=== PATIENT | male | born 1940 | race Caucasian/White ===

== ENCOUNTER 2017-10-03 14:31 | Emergency (ER) | payer MEDICARE, OTHER ==
[2017-10-03 14:45] VITALS: BP 126/90
[2017-10-03] MEDS ORDERED: BUPIVACAINE 0.5% PF 30 ML VIAL SUBQ STA (15:56)
[2017-10-03] MEDS ORDERED: BUFFERED LIDOCAINE 10 ML SYRINGE SUBQ STA (15:57)
[2017-10-03] MEDS ORDERED: BUPIVACAINE 0.5% PF 10 ML VIAL SUBQ STA (15:59)
[2017-10-03] MEDS ORDERED: TETANUS/DIPHTHERIA/PERTUSSIS 0.5 ML SYRINGE IM ONE (16:57)
--- NOTE | 2017-10-03 17:02 | ED Physician Documentation ---
PD HPI UPPER EXT INJURY - Stated complaint Stated Complaint: L SIDE FINGERS LAC - Chief complaint Chief Complaint: Ext Problem - History obtained from History obtained from: Patient, Family - History of Present Illness Location: Left, Finger (3rd 4th and 5th) Type of injury: Laceration Where injury occurred: Home Timing - onset: Today Timing - duration: Minutes Timing - details: Abrupt onset, Still present Improved by: Rest Worsened by: Moving, Palpating Associated symptoms: No: Weakness, Numbness, Tingling, Swelling, Discolored Contributing factors: No: Anticoagulated Similar symptoms before: Diagnosis (laceration) Recently seen: Not recently seen - Additonal information Additional information: 77-year-old male was using a table saw to cut a piece of trim and he reached over the top of the board and just nicked the top of his fingers left hand. He has lacerated deeply the left fifth digit over the ulnar surface along laceration of the left fourth digit and a more distal laceration of the third digit. He has retained all function. Review of Systems Constitutional: denies: Fever Eyes: denies: Decreased vision Ears: denies: Ear pain Nose: denies: Congestion Throat: denies: Sore throat Respiratory: denies: Cough GI: denies: Vomiting PD PAST MEDICAL HISTORY - Past Medical History Past Medical History: No - Past Surgical History Past Surgical History: Yes General: Appendectomy HEENT: Tonsil/Adenoidectomy - Present Medications Home Medications: Ambulatory Orders Medication Instructions Recorded Confirmed No Known Home Medications [No 10/03/17 10/03/17 Known Home Medications] - Allergies Allergies/Adverse Reactions: Allergies Allergy/AdvReac Type Severity Reaction Status Date / Time No Known Drug Allergies Allergy Verified 09/13/15 07:19 - Living Situation Living Situation: reports: With spouse/s.o. Living Arrangement: reports: At home - Social History Does the pt smoke?: No Smoking Status: Never smoker Does the pt drink ETOH?: Yes Does the pt have substance abuse?: No - POLST Patient has POLST: No PD ED PE NORMAL - Vitals Vital signs reviewed: Yes (diastolic hypertension ) - General General: Alert and oriented X 3, No acute distress, Well developed/nourished - HEENT HEENT: Atraumatic, PERRL, EOMI - Respiratory Respiratory: No respiratory distress - Derm Derm: Normal color, Warm and dry, No rash - Extremities Extremities: No deformity, No edema, Other (To the left hand there are multiple lacerations. To the distal third digit on the ulnar surface is a laceration along the cuticle that extends to the tip of the finger approximately 2 cm. On the fourth finger on the ulnar surface there is a long laceration that runs from the PIP to the distal phalange 4.5cm this laceration does not involve deeper structures there is macerated tissue and there is stretching of the tissue as well. On the fifth digit on the ulnar surface is a deep laceration that does involve some tissue loss over the ulnar surface of the PIP joint the laceration extends to just distal of the DIP 3.5cm. There is involvement of the facia but not tendon and the distal n/v is intact on all digits. He has no functional deficit on any digit. ) - Neuro Neuro: No motor deficit, No sensory deficit Eye Opening: Spontaneous Motor: Obeys Commands Verbal: Oriented GCS Score: 15 - Psych Psych: Normal mood, Normal affect Results - Vitals Vitals: Vital Signs - 24 hr 10/03/17 14:37 Temperature 36.0 C L Heart Rate 71 Respiratory 16 Rate Blood Pressure 126/90 H O2 Saturation 98 Oxygen O2 Source Room air Procedures - Laceration (location) 3rd, 4th and 5th digits Length in cm: 9.5 Wound type: Linear, Stellate, Irregular, Into subcut fat, Clean Neurovascular status: Sensory intact, Motor intact, Vascular intact Tendon involvement: Tendon intact Anesthesia: Lidocaine 1%, Marcaine 0.5%, With bicarb, OTH (lidocaine to the tip of #3, bupivicaine block to #4 and #5 with excellent anesthesia.) Wound Preparation: Hibiclens, Irrigated copiously NS, Wound explored, To the base Skin layer closure: Nylon, Interrupted, Size #-0 - enter number (5-0 and 4-0) Other: Patient tolerated well, No complications, Neurovascular intact, Dressing applied, Tetanus booster given Complexity: Simple PD MEDICAL DECISION MAKING - ED course Complexity details: reviewed old records, reviewed results, re-evaluated patient , considered differential, d/w patient, d/w family ED course: 77-year-old male with multiple table saw lacerations to his left fingers has not cut deeper structures and clean out and repair is done here in the emergency department. Patient tolerates this well and is given a tetanus booster. Departure - Departure Disposition: 01 Home, Self Care Clinical Impression: Finger laceration Qualifiers: Encounter type: initial encounter Finger: little finger Damage to nail status: without damage Foreign body presence: without foreign body Laterality: left Qualified Code(s): S61.217A - Laceration without foreign body of left little finger without damage to nail, initial encounter Condition: Stable Instructions: ED Laceration Hand Follow-Up: Soo Waite PA [Primary Care Provider] - Comments: sutures will need to be removed in 10-14 days.
== END 2017-10-03 17:35 | disposition home or self-care (01) ==
LOC: ED 14:31
DX: S61.217A Laceration without foreign body of left little finger without damage to nail, initial encounter (principal); S61.213A Laceration without foreign body of left middle finger without damage to nail, initial encounter; S61.215A Laceration without foreign body of left ring finger without damage to nail, initial encounter; W31.2XXA Contact with powered woodworking and forming machines, initial encounter; Z23 Encounter for immunization
CPT/HCPCS: 12004; 90471; 99283

== ENCOUNTER 2020-03-05 07:26 | Outpatient (CLI) | payer MEDICARE, OTHER ==
[2020-03-05 15:41] LABS: ALBUMIN/GLOBULIN RATIO 1.6 (1.0-2.2); BILIRUBIN,TOTAL 1.3 mg/dL (0.2-1.0); CALCIUM 9.5 mg/dL (8.5-10.3); CREATININE 0.9 mg/dL (0.6-1.2); TOTAL PROTEIN 6.5 g/dL (6.7-8.2)
[2020-03-05 20:36] LABS: HEMOGLOBIN A1c% 5.3 % (4.27-6.07)
== END 2020-03-05 07:27 | disposition home or self-care (01) ==
LOC: LAB.S 07:26
PROVIDERS: ATTEND Nurse Practitioner Psychiatric/Mental Health
DX: F41.1 Generalized anxiety disorder (principal)
CPT/HCPCS: 36415; 80053; 83036; 84443

== ENCOUNTER 2020-04-17 09:25 | Outpatient (CLI) | payer MEDICARE, OTHER ==
[2020-04-17 15:06] LABS: % IRON SATURATION 27 % (20-50); IRON 124 ug/dL (45-182); TOTAL IRON BINDING CAPACITY 459 ug/dL (250-450); TRANSFERRIN 328 mg/dL (180-329)
[2020-04-17 15:10] LABS: FOLATE 22.66 ng/mL (5.90 - >24.8)
== END 2020-04-17 09:26 | disposition home or self-care (01) ==
LOC: LAB.S 09:25
PROVIDERS: ATTEND Psychiatry & Neurology Neurology
DX: G25.81 Restless legs syndrome (principal); R41.89 Other symptoms and signs involving cognitive functions and awareness
CPT/HCPCS: 36415; 82306; 82607; 82728; 82746; 83540; 84443; 84466

== ENCOUNTER 2021-05-22 11:31 | Outpatient (CLI) | payer MEDICARE, OTHER | END 2021-05-22 11:32 | disposition critical access hospital (66) | LOC: EMS 11:31 | DX: R42 Dizziness and giddiness (principal); R20.0 Anesthesia of skin; I10 Essential (primary) hypertension | CPT/HCPCS: A0425; A0429 ==

== ENCOUNTER 2021-05-22 12:03 | Emergency (ER) | payer MEDICARE, OTHER ==
--- NOTE | 2021-05-22 12:38 | ED Physician Documentation ---
History of Present Illness - Stated complaint Stated Complaint: HTN - Chief complaint Chief Complaint: Cardiac - History obtained from History obtained from: Patient - Additonal information Additional information: 80-year-old gentleman without history of hypertension presents after an episode of symptoms and elevated blood pressure. He was on his way to the store and started to feel body wide tingling and then took his blood pressure and it was in the range of 170/90. He notes he usually runs 120/70 although when he had his prostate checked last week it was 145/80. He is not on no medications. 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 in the mid . He feels much better now. There is no associated chest pain or trouble breathing. Review of Systems Ten Systems: 10 systems reviewed and negative Constitutional: denies: Fever, Chills Throat: denies: Dental pain / toothache, Sore throat Cardiac: denies: Chest pain / pressure, Palpitations Respiratory: denies: Dyspnea, Cough PD PAST MEDICAL HISTORY - Past Surgical History Past Surgical History: Yes General: Appendectomy HEENT: Tonsil/Adenoidectomy - Present Medications Home Medications: Ambulatory Orders Medication Instructions Recorded Confirmed hydroCHLOROthiazide [Hydrodiuril] 12.5 mg PO DAILY #30 05/22/21 - Allergies Allergies/Adverse Reactions: Allergies Allergy/AdvReac Type Severity Reaction Status Date / Time No Known Drug Allergies Allergy Verified 05/22/21 12:15 - Social History Does the pt smoke?: No Smoking Status: Never smoker Does the pt drink ETOH?: Yes Does the pt have substance abuse?: No - Immunizations Immunizations are current?: Yes - POLST Patient has POLST: No PD ED PE NORMAL - Vitals Vital signs reviewed: Yes - General General: Alert and oriented X 3, No acute distress - HEENT HEENT: PERRL, EOMI - Neck Neck: Supple, no meningeal sign, No bony TTP - Cardiac Cardiac: RRR, No murmur - Respiratory Respiratory: No respiratory distress, Clear bilaterally - Abdomen Abdomen: Normal bowel sounds, Soft, Non tender - Back Back: No CVA TTP, No spinal TTP - Derm Derm: Normal color, Warm and dry - Extremities Extremities: No edema, No calf tenderness / cord - Neuro Neuro: Alert and oriented X 3, No motor deficit, No sensory deficit, Normal speech Eye Opening: Spontaneous Motor: Obeys Commands Verbal: Oriented GCS Score: 15 - Psych Psych: Normal mood, Normal affect Results - Vitals Vitals: Vital Signs - 24 hr 05/22/21 05/22/21 12:11 12:57 Temperature 36.0 C L Heart Rate 67 72 Respiratory 20 18 Rate Blood Pressure 188/94 H 172/94 H O2 Saturation 100 99 Oxygen O2 Source Room air - EKG (time done) 1209 Rate: Rate (enter#) (72) Rhythm: NSR Collison: Normal Intervals: Normal MD QRS: Normal Ischemia: Normal ST segments - Labs Labs: Laboratory Tests 05/22/21 05/22/21 12:58 12:58 WBC 5.8 RBC 5.75 Hgb 17.3 Hct 51.8 MCV 90.1 MCH 30.1 MCHC 33.4 RDW 12.9 Plt Count 172 MPV 10.8 Neut # (Auto) 3.3 Lymph # (Auto) 2.0 [place] # (Auto) 0.4 Eos # (Auto) 0.1 Baso # (Auto) 0.0 Absolute Nucleated RBC 0.00 Nucleated RBC % 0.0 Sodium 138 Potassium 4.0 Chloride 101 Carbon Dioxide 31 Anion Gap 6.0 BUN 19 Creatinine 0.9 Estimated GFR (MDRD) 81 L Glucose 93 Calcium 9.4 Total Bilirubin 0.7 AST 22 ALT 22 Alkaline Phosphatase 54 Total Protein 7.0 Albumin 4.3 Globulin 2.7 Albumin/Globulin Ratio 1.6 PD MEDICAL DECISION MAKING - ED course ED course: 80-year-old gentleman with an episode today of body wide tingling not consistent with TIA or stroke and now elevated blood pressures which she does not really have a history of. He remained hypertensive but otherwise asymptomatic during his stay here and we discussed whether or not to start a antihypertensive. He would like a [id number] prescription for hydrochlorothiazide which he will start after a few days if his blood pressure remains elevated. Departure - Departure Disposition: 01 Home, Self Care Clinical Impression: Elevated blood pressure reading Condition: Good Record reviewed to determine appropriate education?: Yes Instructions: ED Hypertension New Begin Tx Prescriptions: hydroCHLOROthiazide [Hydrodiuril] 12.5 mg PO DAILY #30 Comments: As discussed with what I would recommend is you check your blood pressure for the next couple of days and if remains quite elevated you can start the hydrochlorothiazide at the low dose I am prescribing and follow-up as scheduled with your physician. Return for new or worsening symptoms.
[2021-05-22 12:59] VITALS: BP 172/94
[2021-05-22 13:04] LABS: BASOPHILS % (AUTO) 0.3 %; EOSINOPHILS # (AUTO) 0.1 10^3/uL (0.0-0.7); EOSINOPHILS % (AUTO) 2.1 %; HCT - HEMATOCRIT 51.8 % (42.0-52.0); HGB - HEMOGLOBIN 17.3 g/dL (14.0-18.0); LYMPHOCYTES % (AUTO) 33.7 %; MEAN CORPUSCULAR HEMOGLOBIN 30.1 pg (27.0-31.0); MEAN CORPUSCULAR HGB CONC 33.4 g/dL (32.0-36.0); MEAN CORPUSCULAR VOLUME 90.1 fL (80.0-94.0); MEAN PLATELET VOLUME 10.8 fL (7.4-11.4); MONOCYTES # (AUTO) 0.4 10^3/uL (0.0-1.0); MONOCYTES % (AUTO) 7.1 %; NEUTROPHILS # (AUTO) 3.3 10^3/uL (1.5-6.6); NEUTROPHILS % (AUTO) 56.5 %; PLT - PLATELET COUNT 172 10^3/uL (130-450); RED BLOOD COUNT 5.75 10^6/uL (4.70-6.10); RED CELL DISTRIBUTION WIDTH 12.9 % (12.0-15.0); WHITE BLOOD COUNT 5.8 x10^3/uL (4.8-10.8)
[2021-05-22 13:14] LABS: ALBUMIN 4.3 g/dL (3.2-5.5); ALBUMIN/GLOBULIN RATIO 1.6 (1.0-2.2); BILIRUBIN,TOTAL 0.7 mg/dL (0.2-1.0); CALCIUM 9.4 mg/dL (8.5-10.3); CREATININE 0.9 mg/dL (0.6-1.2)
== END 2021-05-22 15:08 | disposition home or self-care (01) ==
LOC: EDUNIT# → ED 12:03
DX: R03.0 Elevated blood-pressure reading, without diagnosis of hypertension (principal)
CPT/HCPCS: 36415; 80053; 85025; 93005; 99283; 99284

== ENCOUNTER 2022-06-07 08:38 | Emergency (ER) | payer MEDICARE, OTHER ==
--- NOTE | 2022-06-07 10:10 | XRAY Report ---
PROCEDURE: Ankle 3 View LT INDICATIONS: injury TECHNIQUE: 3 views of the ankle were acquired. COMPARISON: None FINDINGS: Bones: Oblique fracture through the distal fibula is noted. There is softening of the fracture lines and periosteal reaction noted. Ankle mortise is maintained Soft tissues: No tibiotalar joint effusion. Achilles tendon appears normal. No radiopaque foreign body IMPRESSION: Distal fibular fracture with associated lateral soft tissue swelling, probably subacute Reviewed by: Beto Blas MD on 06/07/2022 9:08 AM [facility] Approved by: Beto Blas MD on 06/07/2022 9:08 AM [facility] Station ID: [id number]
--- NOTE | 2022-06-07 10:46 | ED Physician Documentation ---
PD HPI LOWER EXT INJURY - Stated complaint Stated Complaint: L ANKLE INJ - Chief complaint Chief Complaint: Ext Problem - History obtained from History obtained from: Patient - Additional information Additional information: The patient comes to the emergency department with chief complaint of left ankle injury. He sustained a twisting injury this morning after slipping on wet grass, and has felt some pain and swelling in the lateral aspect of the ankle. No prior history of injury. No other injuries. Review of Systems Constitutional: reports: Reviewed and negative Eyes: reports: Reviewed and negative Ears: reports: Reviewed and negative Nose: reports: Reviewed and negative Throat: reports: Reviewed and negative Cardiac: reports: Reviewed and negative Respiratory: reports: Reviewed and negative GI: reports: Reviewed and negative : reports: Reviewed and negative Skin: reports: Reviewed and negative Musculoskeletal: reports: Joint pain Neurologic: reports: Reviewed and negative Psychiatric: reports: Reviewed and negative Endocrine: reports: Reviewed and negative Immunocompromised: reports: Reviewed and negative PD PAST MEDICAL HISTORY - Past Medical History Cardiovascular: None Respiratory: None Neuro: None Endocrine/Autoimmune: None GI: None : None HEENT: None Psych: None Musculoskeletal: None Derm: None - Past Surgical History Past Surgical History: Yes General: Appendectomy HEENT: Tonsil/Adenoidectomy - Present Medications Home Medications: Ambulatory Orders Medication Instructions Recorded Confirmed hydroCHLOROthiazide [Hydrodiuril] 12.5 mg PO DAILY #30 05/22/21 - Allergies Allergies/Adverse Reactions: Allergies Allergy/AdvReac Type Severity Reaction Status Date / Time No Known Drug Allergies Allergy Verified 06/07/22 08:45 - Social History Does the pt smoke?: No Smoking Status: Never smoker Does the pt drink ETOH?: Yes Does the pt have substance abuse?: No - Immunizations Immunizations are current?: Yes - POLST Patient has POLST: No PD ED PE NORMAL - Vitals Vital signs reviewed: Yes - General General: Alert and oriented X 3, No acute distress, Well developed/nourished - HEENT HEENT: Atraumatic, PERRL, EOMI, Moist mucous membranes - Neck Neck: Supple, no meningeal sign - Cardiac Cardiac: Strong equal pulses - Respiratory Respiratory: No respiratory distress - Derm Derm: Normal color, Warm and dry, No rash - Extremities Extremities: No deformity, Other (Mild edema left ankle over lateral malleolus. Some tenderness to palpation in the same area. No deformity.) - Neuro Neuro: Alert and oriented X 3 - Psych Psych: Normal mood, Normal affect Results - Vitals Vitals: Oxygen O2 Source Room air - Rads (name of study) Left ankle x-ray series Radiology: Final report received, See rad report (Subacute fracture distal fibula) Procedures - Splint (location) - Minor Left lower extremity Splint applied by: Tech Type of splint: Fiberglass, Posterior Other: Patient tolerated well, No complications, Neurovascular intact, Crutches provided PD Medical Decision Making - ED course ED course: Patient was found to have a fracture of the distal fibula, and was placed in a splint, as above. I have given him instructions for nonweightbearing for now until he sees orthopedics. We have discussed symptomatic management at home and the usual indications for return. Departure - Departure Disposition: 01 Home, Self Care Clinical Impression: Fracture of distal fibula Qualifiers: Encounter type: initial encounter Fracture type: closed Fracture morphology: torus Laterality: left Qualified Code(s): S82.822A - Torus fracture of lower end of left fibula, initial encounter for closed fracture Condition: Stable Instructions: ED Cast Care Fiberglass, ED Fx Lower Ext Comments: Your x-ray shows a fracture of the fibula, the skin tear of the to lower leg bones, at your ankle. The bone ends are not moved out of place. The initial treatment for this is a splint and crutches, but will you will need to follow-up with orthopedics within the next week. Please call first thing tomorrow to set up an appointment. We have given you the contact information for our clinic here but you may also call the [facility] orthopedic office at [phone]. Let them know you were seen in the emergency department, that you have an ankle fracture, and that you are in a splint and need to follow-up within the week. Please use crutches and do not bear weight until cleared to do so by orthopedics. Discharge Date/Time: 06/07/22 11:28
[2022-06-07 10:59] VITALS: BP 165/95
== END 2022-06-07 11:28 | disposition home or self-care (01) ==
LOC: ED 08:38
DX: S82.832A Other fracture of upper and lower end of left fibula, initial encounter for closed fracture (principal); W01.0XXA Fall on same level from slipping, tripping and stumbling without subsequent striking against object, initial encounter; X50.1XXA Overexertion from prolonged static or awkward postures, initial encounter; Y93.89 Activity, other specified
CPT/HCPCS: 29515; 99283

== ENCOUNTER 2022-08-02 08:54 | Outpatient (CLI) | payer MEDICARE, OTHER | END 2022-08-02 08:55 | disposition critical access hospital (66) | LOC: EMS 08:54 | DX: R42 Dizziness and giddiness (principal); R03.0 Elevated blood-pressure reading, without diagnosis of hypertension | CPT/HCPCS: A0425; A0429 ==

== ENCOUNTER 2022-08-31 04:08 | Outpatient (CLI) | payer MEDICARE, OTHER | END 2022-08-31 23:59 | disposition EMS.NT | LOC: EMS 04:08 | DX: R07.89 Other chest pain (principal); F41.9 Anxiety disorder, unspecified ==

== ENCOUNTER 2022-09-30 07:05 | Outpatient (CLI) | payer MEDICARE, OTHER ==
[2022-09-30 14:57] LABS: PSA TOTAL 5.341 ng/mL (0.000-2.000)
[2022-09-30 15:38] LABS: PSA FREE 0.732 ng/mL (0.16-2.81)
== END 2022-09-30 07:06 | disposition home or self-care (01) ==
LOC: LAB.S 07:05
PROVIDERS: ATTEND Urology
DX: R97.20 Elevated prostate specific antigen [PSA] (principal)
CPT/HCPCS: 36415; 84153; 84154